=== PATIENT | female | born 1995 | race Caucasian/White ===

== ENCOUNTER 2019-07-14 02:41 | Emergency (ER) | payer MEDICAID ==
[~2019-07-14] VITALS: Ht 157.5 cm; Wt 54.9 kg
[~2019-07-14 02:41] MED LIST: B6-FOLIC ACID1 CAP PO; FERROUS SULFAT325 M2 PO; PRENATAL VITAMI1 TA1; PRENATAL VITAMI1 TA1 PO
[2019-07-14 02:48] VITALS: BP 127/77; Ht 157.5 cm; Wt 54.9 kg
== END 2019-07-14 04:03 | disposition home or self-care (01) ==
LOC: ED 02:41
DX: J01.90 Acute sinusitis, unspecified (principal)